=== PATIENT | male | born 1960 | race Caucasian/White ===

== ENCOUNTER 2021-12-22 09:47 | Outpatient (CLI) | payer BC, SELFPAY ==
[2021-12-22 13:47] LABS: Cholesterol* 168 mg/dL (90-199); HDL Cholesterol* 36 mg/dL (>=40); LDL Cholesterol Calculated 92 mg/dL (<100); Triglycerides* 198 mg/dL (40-149)
== END 2021-12-22 09:48 | disposition home or self-care (01) ==
PROVIDERS: PCP Family Medicine; Visit Provider Family Medicine
DX: Z00.00 Encounter for general adult medical examination without abnormal findings (principal); Z12.5 Encounter for screening for malignant neoplasm of prostate; Z13.6 Encounter for screening for cardiovascular disorders
CPT/HCPCS: 80061; 84153

== ENCOUNTER 2023-02-15 07:47 | Day surgery (SDC) | payer BC, SELFPAY ==
[2023-02-15] VITALS (12 sets, daily range): BP systolic 117–154; BP diastolic 48–90; PULSE 54–78; RESP 11–18; TEMP 36.2–36.7; O2SAT 92–99; BMI 25.0
[2023-02-15] MEDS: LACTATED RINGERS 1000 ML 1,000 ML 100 ML IV ×2 (06:15→11:12)
[2023-02-15] MEDS: SODIUM CHLORIDE 0.9 % (FLUSH) 10 ML SYRINGE IVF (09:00)
--- NOTE | 2023-02-15 09:18 | W.PM.H&PU ---
History & Physical Update History & Physical Update H&P Reviewed and patient assessed: No changes noted
[2023-02-15] MEDS: CEFAZOLIN 2 GM INJ IVP (10:00)
--- NOTE | 2023-02-15 10:06 | W.ANESCHARGE ---
Anesthesia Charges Start Date/Time Anesthesia Start Date: 02/15/23 Anesthesia Start Time: 09:50 Stop Date/Time Anesthesia Stop Date: 02/15/23 Anesthesia Stop Time: 11:53
[2023-02-15] MEDS: BUPIVACAINE 0.25% 30 ML 20 ML INJECTION (11:25)
--- NOTE | 2023-02-15 11:56 | W.ANESCHARGE ---
Anesthesia Charges Start Date/Time Anesthesia Start Date: 02/15/23 Anesthesia Start Time: 09:50 Stop Date/Time Anesthesia Stop Date: 02/15/23 Anesthesia Stop Time: 11:53
[2023-02-15] MEDS: fentaNYL 100 MCG/2 ML inj 50 MCG IVP (12:16)
--- NOTE | 2023-02-15 12:34 | SUR.PHASEI ---
patient met discharge criteria per anesthesia
[2023-02-15] MEDS: HYDROCODONE-ACETAMIN 5-325 MG 1 TAB PO (12:49)
--- NOTE | 2023-02-16 10:55 | PM.GSPRC ---
Operative Note Pre-op diagnosis: Bilateral inguinal hernia repair Post-op diagnosis: Same Type of Procedure: Laparoscopic bilateral inguinal hernia repair with placement of mesh Indications: Patient is a 62-year-old male who presented to clinic with symptomatic bilateral inguinal hernias. Please see consultation note for full discussion. Risks and benefits of operative intervention were discussed at length with the patient. Risks included but was not limited to: Bleeding, infection, risk of damage to surrounding structures, possible need for additional procedures, possible need to convert to an open operation and postoperative complications such as pneumonia, pulmonary emboli or DE. All questions and concerns were addressed with the patient agreeing to proceed. Procedure Description: After discussing the risks and benefits of the procedure, the patient signed informed consent.? The operative site was marked and the patient was brought to the operating room and placed on the operating table in supine position.? Care was taken to pad the patient's pressure points.?? The patient was then intubated by anesthesia.?? The operative site was then prepped and draped in the usual sterile fashion.? A time-out was then performed. A curvilinear incision was made below the umbilicus. Dissection was carried down to subcutaneous tissue until the anterior rectus fascia was encountered. This was incised off the midline. The rectus muscles were then retracted exposing the posterior fascia. A space maker port with a dissecting balloon was then introduced. The preperitoneal space was inflated under direct vision. The balloon was then removed and the preperitoneal space insufflated. A 10 mm 30 degree scope was then advanced and the area was surveyed for bleeding. Dissection began on the right side. Yasir's ligament and the pubic bone was exposed medially. Following this dissection was carried out laterally. A direct/indirect defect was noted. The sac was dissected free from the cord structures using a combination of sharp and blunt dissection. Once the sac was completely reduced, the cord structures were dissected circumfrentially and a piece of Parietex mesh for the appropriate side was placed into the abdomen. Evidence of a small direct hernia, as well as a small indirect. The mesh was positioned around the cord structures. A Tacker was used to attach the mesh medially at Yasir's ligament and a single tack laterally, taking care not to injure the epigastrics. Attention was turned to the opposite side where a large direct defect was noted and repair was completed in the same fashion. Once this was completed the sac was placed on top of the mesh and the preperitoneal space desufflated under direct vision. The ports were removed. The fascia from the infraumbilical port was closed with 0 Vicryl. The skin incisions were closed with absorbable subcuticular suture. Sterile dressings were then applied. The scrotum was examined to ensure that both testicles were down. Instrument sponge and needle counts were correct at the end of the case. Findings: Small direct and indirect inguinal hernia right side. Large direct hernia left side. Anesthesia: GETA Surgeon: Lena Valencia MD Estimated blood loss (mL): 5 Condition: stable Disposition: same day Date of procedure: 02/15/23
== END 2023-02-15 13:15 | disposition home or self-care (01) ==
PROVIDERS: PCP Family Medicine; Visit Provider Surgery
PROC: (CPT 49650; principal; 2023-02-15 09:15)
DX: K40.20 Bilateral inguinal hernia, without obstruction or gangrene, not specified as recurrent (principal)
CPT/HCPCS: 49650; 830; A9270; C1781; J0665; J0690; J1100; J1170; J1885; J2250; J2405; J2704; J2710; J3010; J7120

== ENCOUNTER 2023-03-18 14:44 | Outpatient (CLI) | payer BC, SELFPAY ==
--- NOTE | 2023-03-18 15:00 | CRLHL7_ITS ---
For Patients: As a result of the Century Cures Act, medical imaging exams and procedure reports are released immediately into your electronic medical record. You may view this report before your referring provider. If you have questions, please contact your health care provider. INDICATION: LT epididymis mildly inflamed. Question epididymitis? COMPARISON: none TECHNIQUE: Ken scale imaging was performed of the scrotum. In addition color Doppler and spectral Doppler analysis was performed of the testes. FINDINGS: The testes demonstrate normal arterial and venous blood flow on color Doppler and spectral Doppler analysis. The testes have uniform echogenicity with no evidence of a suspicious mass or area of inflammation. The right testis measures 4.7 x 2.4 x 3.5 cm in size and the left testis measures 4.9 x 2.4 x 2.9 cm. Mild increased vascularity to the slightly hypoechoic left epididymis. The right epididymis is normal. There is no evidence of a hydrocele or varicocele. IMPRESSION: Mild left epididymitis. Remainder normal. Dictated by Asaf Stanley MD @ 03/22/2023 10:35:08 AM (Electronically Signed)
== END 2023-03-18 14:45 | disposition home or self-care (01) ==
LOC: US 14:45
PROVIDERS: PCP Family Medicine; Visit Provider Surgery
DX: N45.1 Epididymitis (principal); N50.819 Testicular pain, unspecified; N50.82 Scrotal pain
CPT/HCPCS: 76870; 93976